=== PATIENT | female | born 1995 | race Caucasian/White ===

== ENCOUNTER 2017-03-23 20:40 | Emergency (ER) | payer OTHER ==
[2017-03-23 20:44] VITALS: BP 142/89; PULSE 94; RESP 18; TEMP 98.4; O2SAT 100
[2017-03-23 22:00] LABS: BLOOD, URINE NEG (NEG); COMMENT (UR) CULT NOT INDICATED; CULTURE IF INDICATED CULT NOT INDICATED; GLUCOSE,URINE NEG (NEG); KETONE, URINE NEG (NEG); NITRITE,URINE NEG (NEG); PH, URINE 5.5 (5.0-8.5); URINE COLOR LIGHT-YELLOW (YELLW/STRAW)
[2017-03-23] MEDS ORDERED: CELE10TA PO (22:13)
[2017-03-23] MEDS ORDERED: LORA1TAB12 PO (22:14)
[2017-03-23] MEDS ORDERED: PROM12.54 PO (22:14)
[2017-03-23 22:16] VITALS: BP 128/78; PULSE 72; RESP 19; O2SAT 96
--- NOTE | 2017-03-23 22:21 | PD ---
HPI Chief Complaint: Cardiac Complaint Time Seen by Provider: 21:51 Travel History International Travel<30 days: No Contact w/Intl Traveler<30days: No Traveled to known affect area: No History of Present Illness HPI The patient is a 21 year old female who presents to the [facility] emergency department with a history of while sitting in class prior to arrival at approximately 7 PM having onset of the sensation of her heart racing, tremulousness and then chest pressure. She reports having shortness of breath associated with this. She reports that she's had this sensation of her heart racing and tremulousness in the past when she's had an anxiety attack, however not the chest pressure. The patient reports that she's been feeling better since she arrived in the emergency department. The patient reports that she newly started Celexa and took her first pill at 4:30 PM today. She denies having any calf pain, swelling, or erythema. She denies having any prior history of DVT or PE. She does report having a family history of DVT in her grandfather. Otherwise on review of systems, she denies having any fevers, cough, congestion, neck pain, abdominal pain, vomiting, diarrhea, urinary symptoms, or neurologic symptoms. LMP: April 2016. The patient reports having a history of irregular menstrual cycles related to her polycystic ovarian syndrome. PFSH Past Medical History Narrative Medical The patient's past medical history is significant for PTCA last, history of anxiety disorder, depression. ?: Unknown Past Surgical History Narrative Surgical The patient's past surgical history is significant for dental surgery. Social History Alcohol Use: Yes (occasionally) Tobacco Use: Yes (5 cigarettes per day) Substance Use: Yes (marijuana) Allergies-Medications (Allergen,Severity, Reaction): Coded Allergies: poppyseed oil (Verified Allergy, Unknown, 03/23/17) Reported Meds & Prescriptions Reported Meds & Active Scripts Active Reported Promethazine (Promethazine HCl) 12.5 Mg Tab 12.5 Mg PO Q4H PRN Lorazepam 1 Mg Tab 1 Mg PO Q6H PRN Celexa (Citalopram Hydrobromide) 10 Mg Tab 10 Mg PO DAILY Narrative Medication Celexa Review of Systems Except as stated in HPI: all other systems reviewed are Neg General / Constitutional: No: Fever Eyes: No: Visual changes HENT: No: Headaches Cardiovascular: Positive: Chest Pain or Discomfort, Dyspnea on exertion Respiratory: Positive: Shortness of Breath Gastrointestinal: No: Abdominal Pain Genitourinary: No: Dysuria Musculoskeletal: No: Pain Skin: No Rash Neurologic: No: Weakness, Focal Abnormalities, Change in Mentation, Slurred Speech, Sensory Disturbance Psychiatric: Positive: Anxiety, No: Depression Endocrine: No: Polydipsia Hematologic/Lymphatic: No: Easy Bruising Physical Exam Narrative General: The patient is a well-developed well-nourished female in no acute distress. Head and Neck exam: Head is normocephalic atraumatic. Eyes: EOMI, pupils are equal round and reactive to light. Nose: Midline septum with pink mucous membranes Mouth: Dentition unremarkable. Moist mucus membranes. Posterior oropharynx is not erythematous. No tonsillar hypertrophy. Uvula midline. Airway patent. Neck: No palpable lymphadenopathy. No nuchal rigidity. No thyromegaly. Cardiovascular: Regular rate and rhythm without murmurs, gallops, or rubs. Lungs: Clear to auscultation bilaterally. No wheezes, rhonchi, or rales. Abdomen: Soft, without tenderness to palpation in all 4 quadrants of the abdomen. No guarding, rebound, or rigidity. Normal bowel sounds are audible. No tenderness on palpation of McBurney's point. Extremities: No clubbing, cyanosis, or edema. 2+ pulses in all 4 extremities. No calf tenderness on palpation. Back: No costovertebral angle tenderness to palpation. Neurologic Exam: Grossly nonfocal. Skin Exam: No rash noted. Intact skin that is warm and dry. Data Data Last Documented VS Vital Signs Date Time Temp Pulse Resp B/P (MAP) Pulse Ox O2 Delivery O2 Flow Rate FiO2 03/23/17 22:16 72 19 128/78 (95) 96 Room Air 03/23/17 20:44 98.4 Orders Orders Complete Blood Count With Diff (03/23/17 20:59) Basic Metabolic Panel (Bmp) (03/23/17 20:59) Urinalysis - C+S If Indicated (03/23/17 20:59) Ed Urine Pregnancytest Poc (03/23/17 20:59) Electrocardiogram (03/23/17 ) D-Dimer (03/23/17 22:09) Thyroid Stimulating Hormone (03/23/17 22:09) Chest, Single Ap (03/23/17 22:09) Iv Access Insert/Monitor (03/23/17 22:09) Ecg Monitoring (03/23/17 22:09) Oximetry (03/23/17 22:09) Ed Discharge Order (03/24/17 00:03) Labs Laboratory Tests Test 03/23/17 21:10 03/23/17 21:28 03/23/17 22:30 Urine Color LIGHT-YELLOW Urine Turbidity CLEAR Urine pH 5.5 Urine Specific [place] 1.015 Urine Protein NEG mg/dL Urine Glucose (UA) NEG mg/dL Urine Ketones NEG mg/dL Urine Occult Blood NEG Urine Nitrite NEG Urine Bilirubin NEG Urine Urobilinogen LESS THAN 2.0 MG/DL Urine Leukocyte Esterase NEG Urine WBC LESS THAN 1 /hpf Microscopic Urinalysis Comment CULT NOT INDICATED White Blood Count 12.0 TH/MM3 Red Blood Count 4.80 MIL/MM3 Hemoglobin 13.5 GM/DL Hematocrit 40.8 % Mean Corpuscular Volume 84.9 FL Mean Corpuscular Hemoglobin 28.1 PG Mean Corpuscular Hemoglobin Concent 33.2 % Red Cell Distribution Width 13.6 % Platelet Count 273 TH/MM3 Mean Platelet Volume 9.5 FL Neutrophils (%) (Auto) 59.0 % Lymphocytes (%) (Auto) 34.4 % Monocytes (%) (Auto) 3.9 % Eosinophils (%) (Auto) 2.2 % Basophils (%) (Auto) 0.5 % Neutrophils # (Auto) 7.1 TH/MM3 Lymphocytes # (Auto) 4.1 TH/MM3 Monocytes # (Auto) 0.5 TH/MM3 Eosinophils # (Auto) 0.3 TH/MM3 Basophils # (Auto) 0.1 TH/MM3 CBC Comment DIFF FINAL Differential Comment Blood Urea Nitrogen 16 MG/DL Creatinine 0.90 MG/DL Random Glucose 98 MG/DL Calcium Level 8.6 MG/DL Sodium Level 139 MEQ/L Potassium Level 3.9 MEQ/L Chloride Level 103 MEQ/L Carbon Dioxide Level 29.9 MEQ/L Anion Gap 6 MEQ/L Estimat Glomerular Filtration Rate 79 ML/MIN Thyroid Stimulating Hormone 3rd Gen 1.610 uIU/ML D-Dimer Quantitative (PE/DVT) 0.21 MG/L [facility] Medical Decision Making Medical Screen Exam Complete: Yes Emergency Medical Condition: Yes Medical Record Reviewed: Yes Interpretation(s) Last Impressions Chest X-Ray 03/23/17 2208 Signed Impressions: Service Date/Time: Thursday, March 23, 2017 22:23 - CONCLUSION: Minimal cardiomegaly. No acute focal pulmonary infiltrate or pulmonary vascular congestion. Uday Tejada MD Differential Diagnosis Hyperthyroid disorder, versus anxiety disorder, versus allergic reaction, versus electrolyte derangements, versus dehydration, versus anemia Narrative Course During the course of the patients emergency department visit, the patients history, examination, and differential diagnosis were reviewed with the patient. The patient was placed on a cardiac sonographer with oximetry and frequent blood pressure monitoring. The patient had IV access obtained and blood work sent for analysis. The patient had an ECG done on arrival. The patient's ECG reveals a sinus rhythm heart rate of 69, and QRS duration is 99 ms, QTC 407 ms, no acute ST segment elevation, T waves are inverted in V1. The patients laboratory studies were reviewed and remarkable for a white count of 12, hemoglobin 13.5, platelets 273 with a normal differential, basic metabolic profile is unremarkable, TSH 1.61, d-dimer is 0.21 decreased the likelihood of pulmonary embolism in this patient with no other significant risk factors. Urinalysis is within normal limits. Radiology studies were reviewed and remarkable for a chest x-ray that shows minimal cardiomegaly, no focal infiltrate or pulmonary vascular congestion. I suspect that the patient's symptoms are related to anxiety. The patient's evaluation shows no acute findings. The patient is resting comfortably and feels better, is alert and in no distress. The patients results and examination findings were discussed with the patient. The repeat examination is unremarkable and benign. The history, exam, diagnostic testing, and current condition do not suggest any significant pathology to warrant further testing, continued ED treatment, admission, or surgical evaluation at this point. The vital signs have been stable. The patient does not have uncontrollable pain, intractable vomiting, or other significant symptoms. The patient's condition is stable and appropriate for discharge. The patient will pursue further outpatient evaluation with a primary care physician or other designated or consulting physician as indicated in the discharge instructions. The patient expressed understanding and was agreeable with this plan. Diagnosis Primary Impression: Palpitations Additional Impression: Anxiety disorder Qualified Codes: F41.9 - Anxiety disorder, unspecified Referrals: Primary Care Physician Patient Instructions: General Instructions, Generalized Anxiety Disorder (ED), Heart Palpitations (ED) Med/Other Pt SpecificInfo: No Change to Meds Disposition: 01 DISCHARGE HOME Condition: Stable Pamela Dsouza MD Mar 23, 2017 22:21
--- NOTE | 2017-03-23 22:28 | RADRPT ---
EXAM DATE/TIME: 03/23/2017 22:23 [facility] COMPARISON: No previous studies available for comparison. INDICATIONS : Chest pain. MEDICAL HISTORY : None. SURGICAL HISTORY : None. ENCOUNTER: Initial ACUITY: 1 day PAIN SCORE: 7/10 LOCATION: Left chest FINDINGS: The heart is minimally enlarged. The pulmonary vascular pattern is normal. The lungs are clear. CONCLUSION: Minimal cardiomegaly. No acute focal pulmonary infiltrate or pulmonary vascular congestion. Uday Tejada MD on March 23, 2017 at 22:25 Board Certified Radiologist. This report was verified electronically.
[2017-03-23 22:45] LABS: AUTOMATED NEUTROPHIL # 7.1 TH/MM3 (1.8-7.7); BASOPHIL # 0.1 TH/MM3 (0-0.2); BASOPHIL % 0.5 % (0.0-2.0); EOSINOPHIL # 0.3 TH/MM3 (0-0.4); EOSINOPHIL % 2.2 % (0.0-4.0); HEMATOCRIT 40.8 % (35.0-46.0); HEMO FLAGS DIFF FINAL; LYMPH % 34.4 % (9.0-44.0); LYMPHOCYTE # 4.1 TH/MM3 (1.0-4.8); MEAN CELL VOLUME 84.9 FL (80.0-100.0); MEAN CORPUSCULAR HEMOGLOBIN 28.1 PG (27.0-34.0); MEAN CORPUSCULAR HGB CONC 33.2 % (32.0-36.0); MONO % 3.9 % (0.0-8.0); PLATELET COUNT 273 TH/MM3 (150-450); RED CELL DISTRIBUTION WIDTH 13.6 % (11.6-17.2)
[2017-03-23 23:03] LABS: BICARBONATE 29.9 MEQ/L (21.0-32.0)
[2017-03-23 23:04] LABS: POTASSIUM 3.9 MEQ/L (3.5-5.1)
--- NOTE | 2017-03-24 14:43 | EKG ---
Date Performed: 03/23/2017 Time Performed: 22:07:26 PTAGE: 21 years EKG: Sinus rhythm NORMAL ECG NO PREVIOUS TRACING DOCTOR: Sahra John Interpretating Date/Time 03/24/2017 14:39:04
== END 2017-03-24 00:21 | disposition home or self-care (01) ==
LOC: NEPC 20:40
DX: R00.2 Palpitations (principal); R07.9 Chest pain, unspecified; R06.02 Shortness of breath; I51.7 Cardiomegaly; F41.9 Anxiety disorder, unspecified; F17.210 Nicotine dependence, cigarettes, uncomplicated; Z79.899 Other long term (current) drug therapy
CPT/HCPCS: 71010; 80048; 81001; 84443; 84703; 85025; 85379; 93005; 99285